=== PATIENT | male | born 2000 | race Hispanic/Latino ===

== ENCOUNTER 2021-12-02 02:21 | Inpatient (IN) | payer OTHER, SELFPAY ==
--- OUTSIDE RECORDS SUMMARY | 2021-12-02 02:25 | XMS REPORT | Continuity of Care Document ---
:2000 Author Organization [facility] t Address [address] [place] [address] Dr. Jones [address] [place] [address] Care Team Providers Name Role Phone Singer RUTLEDGE Attending Clinician Vance Doran DO Attending Clinician Vance DORAN Attending Clinician Unavailable Problems Condition Condition Condition Status Onset Resolution Last Treating Co mments Source Name Details Category Date Date Treatment Clinician Date No known No known Disease Unive rs active active ity of problems problems [facility] Allergies, Adverse Reactions, Alerts Allergy Allergy Status Severity Reaction(s) Onset Inactive Treating Comm ents Source Name Type Date Date Clinician NO KNOWN Drug Active Univers ALLERGIE Class ity of S [facility] Social History Social Habit Start Date Stop Date Quantity Comments Source Exposure to Not sure [facility] SARS-CoV-2 (event) Medica l [place] Sex Assigned At 2000 2000 [facility] 00:00:00 00:00:00 [facility] Smoking Status Start Date Stop Date Source Unknown if ever smoked [facility] Medications Ordered Filled Start Stop Current Ordering Indication Dosage Frequency Signature Comments Components Source Medication Medication Date Date Medication? Clinician (SIG) Name Name LORazepam 2019- 2020- No 1mg 1 mg, Slow U nivers (ATIVAN) 04-30 08-03 IV Push, ity of injection 1 08:45: 07:45 [place] :00 dose, [facility] Medical 04/30/20 at [place] 0345, STAT NaCl 0.9% 2020- No 1000mL at 999 Uni vers (NS) bolus 04-30 08-03 mL/hr, ity of infusion 07:45: 10:10 1,000 mL, Farooq as 1,000 mL 00 :00 IV Medical Infusion, [place] ONCE, 1 dose, [facility] 04/30/20 at 0245, CORINNA No known No Univers medications ity of [facility] No known No Univers medications ity of [facility] Vital Signs Vital Name Observation Time Observation Value Comments Source Systolic blood 2020-12-04 17:00:00 108 mm[Hg] Univer sity of pressure [facility] Diastolic blood 2020-12-04 17:00:00 76 mm[Hg] Unive rsity of pressure [facility] Heart rate 2020-12-04 17:00:00 76 /min [facility] [place] [facility] [place] Respiratory rate 2020-12-04 17:00:00 18 /min Univ ersity of [facility] Oxygen saturation in 2020-12-04 17:00:00 98 /min University of Arterial blood by [facility] Pulse oximetry Branch Body temperature 2020-12-04 14:45:00 37.28 [facility] Body weight 2020-12-04 14:45:00 54.432 kg Universi ty of [facility] Systolic blood 2020-04-30 10:00:00 120 mm[Hg] Univer sity of [facility] Diastolic blood 2020-04-30 10:00:00 72 mm[Hg] Unive rsity of [facility] Heart rate 2020-04-30 10:00:00 113 /min [facility] [place] [facility] Respiratory rate 2020-04-30 10:00:00 19 /min [facility] [place] [facility] Oxygen saturation in 2020-04-30 10:00:00 98 /min University of Arterial blood by [facility] Pulse oximetry Branch Body temperature 2020-04-30 07:41:[address] [facility] [place] Body weight 2020-04-30 07:41:00 58.968 kg Universi ty [facility] Procedures Procedure Date / Time Performed Performing Clinician Sourc e MAGNESIUM 2020-12-04 16:27:00 Uriel Nowak o f [facility] BASIC METABOLIC PANEL 2020-12-04 16:27:00 [facility] Now[facility] (NA, K, CL, CO2, Medical Branch GLUCOSE, BUN, CREATININE, CA) CBC WITHOUT DIFF 2020-12-04 16:27:00 Uriel Nowak [facility] NOTICE OF PRIVACY 2020-12-04 14:27:24 Doctor Unassigned, No Univ [facility] PRACTICES Name Medical Branch CONSENT/REFUSAL FOR 2020-12-04 14:26:55 Doctor Unassigned, No [facility] AND Name Medical Branch TREATMENT BASIC METABOLIC PANEL 2020-04-30 07:45:00 Nicole Doran [facility] (NA, K, CL, CO2, Medical Branch GLUCOSE, BUN, CREATININE, CA) CBC WITH DIFF 2020-04-30 07:45:00 Nicole Doran [facility] EKG-12 LEAD 2020-04-30 07:41:22 Nicole Doran [facility] Encounters Start End Encounter Admission Attending Care Care Encounter Source Date/Time Date/Time Type Type Clinicians Facility Department ID 2020-12-04 2020-12-04 Emergency [facility] [id number] Univers 08:47:00 11:41:00 Uriel Negron [id number] i ty [facility] [id number] [facility] [id number] [address] 2020-12-04 2020-12-04 Emergency X [facility] ERT [id number] Univers 08:25:00 [facility] 2020-04-30 2020-04-30 Emergency [facility] [id number] Univers 02:35:00 05:18:00 [id number] [id number] [facility] [id number] [address] 2020-04-30 2020-04-30 Emergency X [facility] ERT [id number] Univers 02:35:00 02:35:[address] [facility] Results Test Description Test Time Test Comments Results Result Comments Source MAGNESIUM 2020-12-04 17:19:54 Test Item Value Reference Range Interpretation Comme nts MAGNESIUM (test code = 5171140396) 1.9 mg/dL 1.7-2.4 Lab Interpretation (test code = 84471-6) Normal [facility] (NA, K, CL, CO2, GLUCOSE, BUN, CREATININE, CA)2020-12-04 17:19:53 Test Item Value Reference Range Interpretation Comments NA (test code = 140 mmol/L 135-145 7426677073) K (test code = 4.7 mmol/L 3.5-5.0 3354175311) CL (test code = 103 mmol/L 98-108 9844731366) CO2 TOTAL (test code = 29 mmol/L 23-31 1704529606) AGAP (test code = 2-16 1485969419) BUN (test code = 20 mg/dL 7-23 3185630483) GLUCOSE (test code = 95 mg/dL 70-110 1176968681) CREATININE (test code 0.79 mg/dL 0.60-1.25 = 6100915880) CALCIUM (test code = 9.3 mg/dL 8.6-10.6 3248724262) eGFR Calculation mL/min/1.73m2 (Non-) (test code = 4725022690) eGFR Calculation mL/min/1.73m2 () (test code = 0159990124) NICK (test code = NICK) Association of Glomerular Filtration Rate (GFR) and Staging of Kidney Disease* + -+ + ---+| GFR (mL/min/1.73 m2) ?| With Kidney Damage ?| ?Without Kidney Damage+ -------+ ------+ ---------+| ?>90 ?| ?Stage one ?| ? Normal ?+ --+ -+ ----+| ?60-89 ?| ?Stage two ?| ? Decreased GFR ? + -+ + ---+| ?30-59 ?| ?Stage three ?| ? Stage three ? + -+ + ---+| ?15-29 ?| ?Stage four ? | ? Stage four ?+ --+ -+ ----+| ?<15 (or dialysis) ? ?| ?Stage five ? | ? Stage five ?+ --+ -+ ----+ *Each stage assumes the associated GFR level has been in effect for at least three months. ?Stages 1 to 5, with or without kidney disease, indicate chronic kidney disease. Notes: Determination of stages one and two (with eGFR >59mL/min/1.73 m2) requires estimation of kidney damage for at least three months as defined by structural or functional abnormalities of the kidney, manifested by either:Pathological abnormalities or Markers of kidney damage (including abnormalities in the composition of the blood or urine or abnormalities in imaging tests). [facility] [id number] 16:40:29 Test Item Value Reference Range Interpretation Comments WBC (test code = 6690-2) See_Comment [A utomated message] The system [employer] generated this result transmit yordan reference range : 4.20 - 10.70 10*3/?L. The reference range was not used to interpret this result as normal/abnormal . RBC (test code = 789-8) See_Comment [Au tomated message] The system [employer] generated this result transmit yordan reference range : 4.26 - 5.52 10* 6/?L. The reference r brendon was not used to interpret this result as normal/abnormal . HGB (test code = 718-7) 16.8 g/dL 12.2-16.4 H HCT (test code = 4544-3) 48.2 % 38.4-49.3 MCH (test code = 785-6) 31.2 pg 26.1-32.7 MCV (test code = 787-2) 89.4 fL 81.7-95.6 MCHC (test code = 786-4) 34.9 g/dL 31.2-35.0 PLT (test code = 777-3) See_Comment [Au tomated message] The system [employer] generated this result transmit yordan reference range : 150 - 328 10*3/?L. The reference range was not used to interpret this result as normal/abnormal . MPV (test code = 10.3 fL 9.8-13.0 89349-7) RDW-CV (test code = 11.4 % 12.1-15.4 L 788-0) RDW-SD (test code = 36.4 fL 38.5-51.6 L 92148-2) NRBC x10^3 (test code = <0.01 See_Comment [Au tomated message] 6885801524) The system [employer] generated this result transmit yordan reference range : 10*3/?L. The reference range was not used to interpret this result as normal/abnormal . NRBC/100 WBC (test code See_Comment [Au tomated message] = 4045581148) The system [employer] generated this result transmit yordan reference range : 0.0 - 10.0 /100 WBC s. The reference r brendon was not used to interpret this result as normal/abnormal . IPF % (test code = 6265035353) Lab Interpretation (test Abnormal code = 06972-3) [facility] Metabolic Panel (NA, K, CL, CO2, GLUCOSE, BUN, CREATININE, CA)2020-04-30 08:08:00 Test Item Value Reference Range Interpretation Comments NA (test code = 141 mmol/L 135-145 1699327927) K (test code = 3.3 mmol/L 3.5-5 L 6599801648) CL (test code = 105 mmol/L 98-108 4578018483) CO2 TOTAL (test code = 25 mmol/L 23-31 2591085315) AGAP (test code = 2-16 2393585712) BUN (test code = 21 mg/dL 7-23 2220231076) GLUCOSE (test code = 155 mg/dL 70-110 H 1382220950) CREATININE (test code = 0.88 mg/dL 0.6-1.25 3093135425) CALCIUM (test code = 9.7 mg/dL 8.6-10.6 7005491148) eGFR Calculation mL/min/1.73m2 (Non-) (test code = 0049314339) eGFR Calculation mL/min/1.73m2 () (test code = 5752302547) NICK (test code = NICK) Association of Glomerular Filtration Rate (GFR) and Staging of Kidney Disease* + --+ --+ ------+| GFR (mL/min/1.73 m2) ?| With Kidney Damage ?| ?Without Kidney Damage+ --------+ --------+ +| ?>90 ?| ?Stage one ?| ? Normal ?+ ---+ ---+ -------+| ?60-89 ?| ?Stage two ?| ? Decreased GFR ? + --+ --+ ------+| ?30-59 ?| ?Stage three ?| ? Stage three ? + --+ --+ ------+| ?15-29 ?| ?Stage four ? | ? Stage four ?+ ---+ ---+ -------+| ?<15 (or dialysis) ? ?| ?Stage five ? | ? Stage five ?+ ---+ ---+ -------+ *Each stage assumes the associated GFR level has been in effect for at least three months. ?Stages 1 to 5, with or without kidney disease, indicate chronic kidney disease. Notes: Determination of stages one and two (with eGFR >59mL/min/1.73 m2) requires estimation of kidney damage for at least three months as defined by structural or functional abnormalities of the kidney, manifested by either:Pathological abnormalities or Markers of kidney damage (including abnormalities in the composition of the blood or urine or abnormalities in imaging tests). Lab Interpretation Abnormal (test code = 81769-1) [facility] with [id number] 07:58:00 Test Item Value Reference Range Interpretation Comments WBC (test code = See_Comment [Automated 1718-2) message] The sy stem which generated this result transmitted reference range : 4.20 - 10.70 10*3/?L. The reference range was not used to interpret this result as normal/abnormal . RBC (test code = See_Comment [Automated 945-8) message] The sy stem which generated this result transmitted reference range : 4.26 - 5.52 10*6/?L. The reference range was not used to interpret this result as normal/abnormal . HGB (test code = 16.1 g/dL 12.2-16.4 718-7) HCT (test code = 45.1 % 38.4-49.3 4544-3) MCV (test code = 88.4 fL 81.7-95.6 787-2) MCH (test code = 31.6 pg 26.1-32.7 785-6) MCHC (test code = 35.7 g/dL 31.2-35 H 786-4) RDW-SD (test code = 35.3 fL 38.5-51.6 L 49765-6) RDW-CV (test code = 11.0 % 12.1-15.4 L 788-0) PLT (test code = See_Comment [Automated 567-3) message] The sy stem which generated this result transmitted reference range : 150 - 328 10*3/ ?L. The reference r brendon was not used to interpret this result as normal/abnormal . MPV (test code = 10.5 fL 9.8-13 41763-7) NRBC/100 WBC (test See_Comment [Automat ed code = 7345942231) message] The system which generated this result transmitted reference range : 0.0 - 10.0 /100 WBCs. The refer ence range was not u sed to interpret th is result as normal/abnormal . NRBC x10^3 (test code <0.01 See_Comment [Auto mated = 7973066047) message] The s ystem which generated this result transmitted reference range : 10*3/?L. The reference range was not used to interpret this result as normal/abnormal . GRAN MAT (NEUT) % 56.1 % (test code = 770-8) IMM GRAN % (test code 0.30 % = 0118393600) LYMPH % (test code = 36.2 % 736-9) MONO % (test code = 5.1 % 5905-5) EOS % (test code = 2.0 % 713-8) BASO % (test code = 0.3 % 706-2) GRAN MAT x10^3(ANC) 4.87 10*3/uL 1.99-6.95 (test code = 9152413731) IMM GRAN x10^3 (test 0.03 10*3/uL 0-0.06 code = 3072357055) LYMPH x10^3 (test code 3.14 10*3/uL 1.09-3.23 = 731-0) MONO x10^3 (test code 0.44 10*3/uL 0.36-1.02 = 742-7) EOS x10^3 (test code = 0.17 10*3/uL 0.06-0.53 711-2) BASO x10^3 (test code 0.03 10*3/uL 0.01-0.09 = 704-7) Lab Interpretation Abnormal (test code = 81350-1) [facility]"
[2021-12-02] MEDS ORDERED: ALBUTEROL 2.5 MG/3 ML NEB SOL ONE (03:21)
[2021-12-02] MEDS ORDERED: IPRATROPIUM BROM 0.5MG/2.5ML ONE (03:21)
[2021-12-02 03:36] LABS: Urine Blood Negative (Negative); Urine Glucose Negative (Negative); Urine Protein Negative (Negative); Urine Specific Gravity >=1.030 (1.005-1.030)
[2021-12-02 03:46] LABS: Protime INR 1.33
[2021-12-02 03:47] LABS: Absolute Lymphocytes (CBC) 1.5 K/uL (0.7-4.9); Hematocrit 45.6 % (39.6-49.0); Lymphocytes % 18.2 % (15.3-44.8); MPV 8.1 fL (7.6-11.3); RBC Red Blood Cell Count 5.17 M/uL (4.33-5.43)
[2021-12-02 03:57] LABS: SARS-COV-2 RT PCR NEGATIVE (NEGATIVE)
[2021-12-02 03:58] LABS: ALT/SGPT 41 U/L (12-78); AST/SGOT 20 U/L (15-37); Albumin 4.4 g/dL (3.4-5.0); Alkaline Phosphatase 106 U/L (45-117); BUN Blood Urea Nitrogen 25 mg/dL (7-18); Bicarbonate 26 mmol/L (21-32); Bilirubin Direct 0.1 mg/dL (0-0.2); Bilirubin Total 0.4 mg/dL (0.2-1.0); Glucose Level 98 mg/dL (74-106); Magnesium 2.4 mg/dL (1.8-2.4); Potassium 4.1 mmol/L (3.5-5.1); Protein, Total 7.9 g/dL (6.4-8.2); Sodium Level 139 mmol/L (136-145)
[2021-12-02 04:01] LABS: Barbiturates NEGATIVE (NEGATIVE); Benzodiazepines NEGATIVE (NEGATIVE); Cocaine NEGATIVE (NEGATIVE); METHAMPHETAM NEGATIVE (NEGATIVE); Methadone NEGATIVE (NEGATIVE); Opiates NEGATIVE (NEGATIVE); Phencyclidine NEGATIVE (NEGATIVE); THC Cannibis NEGATIVE (NEGATIVE)
[2021-12-02] MEDS ORDERED: LIDOCAINE 1% MPF 30 ML VIAL ONE (04:13)
[2021-12-02 04:16] LABS: NT PRO-BNP < 5 pg/mL (<125); Troponin High Sensitivity < 3.00 pg/mL (<58.9)
[2021-12-02] MEDS ORDERED: FENTANYL CITR 100 MCG/2 ML ONE (04:26)
[2021-12-02] MEDS ORDERED: ETOMIDATE 20 MG/10 ML VIAL IV ONE (04:26)
[2021-12-02] MEDS ORDERED: WATER FOR INJ,STERILE 20 ML ONE (04:49)
--- NOTE | 2021-12-02 05:11 | ER ---
Nurse's Notes [facility] Name: Bennett Magaña Jr Age: 21 yrs Sex: Male : 2000 Arrival Date: 12/02/2021 Time: 02:24 Bed 4 Private MD: Diagnosis: Primary spontaneous pneumothorax Presentation: 12/02 02:37 Chief complaint: Patient states: Reports pain with breathing x 1 day, more to right lp1 side of chest with some nasal congestion; Hx of Asthma. Coronavirus screen: At this time, the client does not indicate any symptoms associated with coronavirus-19. Ebola Screen: No symptoms or risks identified at this time. Initial Sepsis Screen: Does the patient meet any 2 criteria? No. Patient's initial sepsis screen is negative. Does the patient have a suspected source of infection? No. Patient's initial sepsis screen is negative. Risk Assessment: Do you want to hurt yourself or someone else? Patient reports no desire to harm self or others. Onset of symptoms was December 01, 2021. 02:37 Method Of Arrival: Ambulatory lp1 02:37 Acuity: JESSICA 3 lp1 Triage Assessment: 02:39 General: Appears in no apparent distress. Behavior is calm, cooperative. Pain: lp1 Complains of pain in anterior aspect of right upper chest Aggravated by increased activity. Respiratory: Reports pain with respiration Respiratory effort is even, unlabored. Derm: Skin is pink, warm \\T\\ dry. Historical: - Allergies: 02:39 No Known Allergies; lp1 - Home Meds: 02:39 None [Active]; lp1 - PMHx: 02:39 Asthma; lp1 - PSHx: 02:39 None; lp1 - Immunization history:: Adult Immunizations up to date. - Social history:: Smoking status: Patient denies any tobacco usage or history of. Screenin:39 Abuse screen: Denies threats or abuse. Denies injuries from another. Nutritional lp1 screening: No deficits noted. Tuberculosis screening: No symptoms or risk factors identified. Fall Risk None identified. Assessment: 03:35 General: Appears uncomfortable, Behavior is calm, cooperative. Pain: Complains of pain ll3 in chest and anterior aspect of right upper chest Pain currently is 6 out of 10 on a pain scale. Quality of pain is described as sharp, Pain began 3 hours ago. Is intermittent, Alleviated by rest, Aggravated by Taking a deep breath Noted to be States it hurts to take a deep breath or cough. Neuro: Level of Consciousness is awake, alert, obeys commands, Oriented to person, place, time, situation. Cardiovascular: Rhythm is sinus rhythm. Respiratory: Reports shortness of breath pain with cough pain with respiration Airway is patent Respiratory effort is even, unlabored, Respiratory pattern is regular, symmetrical, Breath sounds are clear bilaterally. Derm: Skin is pink, warm \\T\\ dry. Musculoskeletal: Circulation, motion, and sensation intact. 03:51 Reassessment: States "That breathing treatment helped so much, I don't feel as short of ll3 breath and it doesn't hurt as much when I take a deep breath". Patient states feeling better. Patient states symptoms have improved. 05:09 Reassessment: See conscious sedation flow sheet in chart. ll3 Vital Signs: 02:37 BP 158 / 96; Pulse 96; Resp 18; Temp 98.4(O); Pulse Ox 98% on R/A; Weight 68.95 kg (R); lp1 Height 5 ft. 10 in. (177.80 cm); Pain 6/10; 03:30 BP 130 / 82; Pulse 81; Resp 20; Pulse Ox 100% on R/A; ll3 04:32 BP 120 / 101; Pulse 90; Resp 21; Pulse Ox 100% on R/A; ll3 06:12 BP 122 / 63; Pulse 88; Resp 17 S; Pulse Ox 97% on R/A; as6 02:37 Body Mass Index 21.81 (68.95 kg, 177.80 cm) lp1 ED Course: 02:24 Patient arrived in ED. es 02:31 Peter Mesa MD is Attending Physician. mh7 02:38 Triage completed. lp1 02:38 Arm band placed on. lp1 03:21 Adriana Thrasher, ROXANN is Primary Nurse. ll3 03:27 XRAY Chest (1 view) In Process Unspecified. EDMS 03:35 Patient has correct armband on for positive identification. Bed in low position. Call ll3 light in reach. Side rails up X 1. 03:35 Initial lab(s) drawn, by ED staff, sent to lab. Urine collected: clean catch specimen, ll3 clear, EKG done, by ED staff, reviewed by Adriana Thrasher RN COVID swab sent to lab. Flu and/or RSV swab sent to lab. X-ray(s) taken. Legal drug screen obtained per protocol. Initial Neb Treatment Given as ordered Patient was instructed and evaluated on procedure Patient tolerated procedure well without adverse effect. Inserted saline lock: 20 gauge in right antecubital area, using aseptic technique. Blood collected. 05:10 Colin Perez MD is Hospitalizing Provider. [facility] 05:11 Assist provider with chest tube insertion with 18 Fr. in right lateral chest wall. Tray ll3 was set up. Attached to [employer]. Chest tube inserted by Peter Mesa MD Placement verified by CXR, Dressed with Vaseline gauze, foam tape, silk tape, 4X4s, Patient tolerated well. Inserted saline lock: 18 gauge in left antecubital area, using aseptic technique. 06:06 Patient admitted, IV remains in place. as6 Administered Medications: 03:30 Drug: Albuterol 2.5 mg Route: Inhalation; ll3 03:50 Follow up: Response: No adverse reaction; Marked relief of symptoms ll3 03:30 Drug: AtroVENT (ipratropium) Aerosol 0.5 mg Route: Inhalation; ll3 03:50 Follow up: Response: No adverse reaction; Marked relief of symptoms ll3 04:46 Drug: fentaNYL (PF) 50 mcg Route: IVP; Site: left antecubital; ll3 05:45 Follow up: Response: No adverse reaction; RASS: Drowsy (-1) as6 04:50 Drug: Etomidate 20 mg Route: IVP; Site: left antecubital; ll3 05:45 Follow up: Response: No adverse reaction as6 04:52 Drug: Etomidate 10 mg Route: IVP; Site: left antecubital; ll3 05:45 Follow up: Response: No adverse reaction as6 04:57 Drug: Etomidate 10 mg Route: IVP; Site: left antecubital; ll3 05:45 Follow up: Response: No adverse reaction as6 04:58 Drug: fentaNYL (PF) 50 mcg Route: IVP; Site: left antecubital; ll3 05:46 Follow up: Response: No adverse reaction; RASS: Alert and Calm (0) as6 Outcome: 05:11 Decision to Hospitalize by Provider. mh7 05:39 Admitted to Med/surg Report called to Attempted to call back. They stated they are not tw5 yet ready for patient and will have to call back 06:06 Condition: stable as6 06:25 Patient left the ED. as6 Signatures: Dispatcher [employer] Vaishnavi Dupont Laura RN RN lp1 Peter Mesa MD MD 7 Ronda Basurto 5 Matty Limon RN RN as6 Adriana Thrasher RN RN ll3 Corrections: (The following items were deleted from the chart) 05:11 04:32 Reassessment: alexis ll3
--- NOTE | 2021-12-02 05:12 | EDPHYS ---
Physician Documentation [facility] Name: Bennett Magaña Jr Age: 21 yrs Sex: Male : 2000 Arrival Date: 12/02/2021 Time: 02:24 Bed 4 Private MD: ED Physician Peter Mesa HPI: 12/02 03:06 This 21 yrs old Male presents to ER via Ambulatory with complaints of mh7 Breathing Difficulty. 03:06 The patient has shortness of breath at rest. Onset: The symptoms/episode began/occurred mh7 yesterday. Duration: The symptoms are intermittent, with no pattern. The patient's shortness of breath is aggravated by Deep breaths, is alleviated by nothing. Associated signs and symptoms: Pertinent positives: chest pain, Pertinent negatives: non-productive cough, productive cough, diaphoresis, dizziness, fever, hemoptysis, loss of consciousness, nausea, numbness in extremities, visual changes, vomiting. Severity of symptoms: At their worst the symptoms were moderate yesterday, in the emergency department the symptoms are unchanged. Historical: - Allergies: 02:39 No Known Allergies; lp1 - Home Meds: 02:39 None [Active]; lp1 - PMHx: 02:39 Asthma; lp1 - PSHx: 02:39 None; lp1 - Immunization history:: Adult Immunizations up to date. - Social history:: Smoking status: Patient denies any tobacco usage or history of. ROS: 03:06 Constitutional: Negative for fever, chills, and weight loss, Eyes: Negative for injury, mh7 pain, redness, and discharge, ENT: Negative for injury, pain, and discharge, Neck: Negative for injury, pain, and swelling, Abdomen/GI: Negative for abdominal pain, nausea, vomiting, diarrhea, and constipation, Back: Negative for injury and pain, : Negative for injury, bleeding, discharge, and swelling, MS/Extremity: Negative for injury and deformity, Skin: Negative for injury, rash, and discoloration, Neuro: Negative for headache, weakness, numbness, tingling, and seizure, Psych: Negative for depression, anxiety, suicide ideation, homicidal ideation, and hallucinations, Allergy/Immunology: Negative for hives, rash, and allergies, Endocrine: Negative for neck swelling, polydipsia, polyuria, polyphagia, and marked weight changes, Hematologic/Lymphatic: Negative for swollen nodes, abnormal bleeding, and unusual bruising. Exam: 03:06 Constitutional: This is a well developed, well nourished patient who is awake, alert, mh7 and in no acute distress. Head/Face: Normocephalic, atraumatic. Eyes: Pupils equal round and reactive to light, extra-ocular motions intact. Lids and lashes normal. Conjunctiva and sclera are non-icteric and not injected. Cornea within normal limits. Periorbital areas with no swelling, redness, or edema. Neck: Trachea midline, no thyromegaly or masses palpated, and no cervical lymphadenopathy. Supple, full range of motion without nuchal rigidity, or vertebral point tenderness. No Meningismus. Chest/axilla: Normal chest wall appearance and motion. Nontender with no deformity. No lesions are appreciated. Cardiovascular: Regular rate and rhythm with a normal S1 and S2. No gallops, murmurs, or rubs. Normal PMI, no JVD. No pulse deficits. Respiratory: Lungs have equal breath sounds bilaterally, clear to auscultation and percussion. No rales, rhonchi or wheezes noted. No increased work of breathing, no retractions or nasal flaring. Abdomen/GI: Soft, non-tender, with normal bowel sounds. No distension or tympany. No guarding or rebound. No evidence of tenderness throughout. Back: No spinal tenderness. No costovertebral tenderness. Full range of motion. Skin: Warm, dry with normal turgor. Normal color with no rashes, no lesions, and no evidence of cellulitis. MS/ Extremity: Pulses equal, no cyanosis. Neurovascular intact. Full, normal range of motion. Neuro: Awake and alert, GCS 15, oriented to person, place, time, and situation. Cranial nerves II-XII grossly intact. Motor strength 5/5 in all extremities. Sensory grossly intact. Cerebellar exam normal. Normal gait. Psych: Awake, alert, with orientation to person, place and time. Behavior, mood, and affect are within normal limits. 03:30 ECG was reviewed by the Attending Physician. [facility] Vital Signs: 02:37 BP 158 / 96; Pulse 96; Resp 18; Temp 98.4(O); Pulse Ox 98% on R/A; Weight 68.95 kg (R); lp1 Height 5 ft. 10 in. (177.80 cm); Pain 6/10; 03:30 BP 130 / 82; Pulse 81; Resp 20; Pulse Ox 100% on R/A; ll3 04:32 BP 120 / 101; Pulse 90; Resp 21; Pulse Ox 100% on R/A; ll3 06:12 BP 122 / 63; Pulse 88; Resp 17 S; Pulse Ox 97% on R/A; as6 02:37 Body Mass Index 21.81 (68.95 kg, 177.80 cm) lp1 Procedures: 05:26 Chest tube insertion: the site was prepped using Betadine, in sterile fashion, Tube mh7 size: a 18 khmer chest tube was inserted, introduced in right lateral chest wall, to pleur-e-vac, dressed with vaseline gauze, foam tape, 4x4s, the patient tolerated the procedure well. Moderate sedation: Pre-procedure assessment: the patient has been NPO 8 hour(s) prior to arrival, ASA physical classification: I - healthy, no underlying organic disease, Airway assessment: able to hyperextend neck, able to maintain airway, can open mouth without difficulty, Mallampati classification of tongue size: I - faucial pillars, soft palate, and uvula can be fully visualized, Monitoring during procedure: monitor worker, continuous pulse oximetry, nurse at bedside at all times, Medications employed: Etomidate, 40 mg(s), Fentanyl, 100 mcg(s), Post-procedure assessment: the patient is moderately sedated, Respiratory status: even and unlabored, a reversal agent was not used. MDM: 05:09 Differential diagnosis: Anemia Anxiety Reaction asthma, Bronchitis pneumonia, mh7 Pneumothorax Psychogenic reactive airway disease. Data reviewed: vital signs, nurses notes, lab test result(s), cardiac enzymes, CBC, electrolytes, EKG, radiologic studies, plain films. Data interpreted: Pulse oximetry: on 2L(s) per nasal canula, is 100 %. Interpretation: acceptable. Counseling: I had a detailed discussion with the patient and/or guardian regarding: the historical points, exam findings, and any diagnostic results supporting the discharge/admit diagnosis, lab results, radiology results, the need for further work-up and treatment in the hospital. Response to treatment: the patient's symptoms have markedly improved after treatment. 05:11 Patient medically screened. [facility] 12/02 02:56 Order name: Basic Metabolic Panel; Complete Time: 04:22 [facility] 12/02 02:56 Order name: CBC with Diff; Complete Time: 04:02 [facility] 12/02 02:56 Order name: LFT's; Complete Time: 04:22 [facility] 12/02 02:56 Order name: Magnesium; Complete Time: 04:22 [facility] 12/02 02:56 Order name: NT PRO-BNP; Complete Time: 04:22 [facility] 12/02 02:56 Order name: PT-INR; Complete Time: 04:02 [facility] 12/02 02:56 Order name: Troponin HS; Complete Time: 04:22 [facility] 12/02 02:56 Order name: XRAY Chest (1 view) [facility] 12/02 02:56 Order name: UDS; Complete Time: 04:08 [facility] 12/02 02:56 Order name: COVID-19/FLU A+B (Document "Date of Onset" if Symptomatic); Complete Time: [facility] 04:02 12/02 03:35 Order name: Urine Dipstick-Ancillary; Complete Time: 04:02 [facility] 12/02 05:06 Order name: Chest Single View XRAY la1 12/02 02:56 Order name: EKG; Complete Time: 02:57 [facility] 12/02 02:56 Order name: Cardiac monitoring; Complete Time: 03:21 [facility] 12/02 02:56 Order name: EKG - Nurse/Tech; Complete Time: 03:21 [facility] 12/02 02:56 Order name: IV Saline Lock; Complete Time: 03:21 [facility] 12/02 02:56 Order name: Labs collected and sent; Complete Time: 03:21 [facility] 12/02 02:56 Order name: O2 Per Protocol; Complete Time: 03:21 [facility] 12/02 02:56 Order name: O2 Sat Monitoring; Complete Time: 03:21 [facility] EC:30 Rate is 83 beats/min. Rhythm is regular, Normal Sinus Rhythm with No ectopy. QRS Harmony 7 is Normal. IN interval is normal. QRS interval is normal. QT interval is normal. No Q waves. T waves are Normal. No ST changes noted. Clinical impression: Normal ECG. Administered Medications: 03:30 Drug: Albuterol 2.5 mg Route: Inhalation; ll3 03:50 Follow up: Response: No adverse reaction; Marked relief of symptoms ll3 03:30 Drug: AtroVENT (ipratropium) Aerosol 0.5 mg Route: Inhalation; ll3 03:50 Follow up: Response: No adverse reaction; Marked relief of symptoms ll3 04:46 Drug: fentaNYL (PF) 50 mcg Route: IVP; Site: left antecubital; ll3 05:45 Follow up: Response: No adverse reaction; RASS: Drowsy (-1) as6 04:50 Drug: Etomidate 20 mg Route: IVP; Site: left antecubital; ll3 05:45 Follow up: Response: No adverse reaction as6 04:52 Drug: Etomidate 10 mg Route: IVP; Site: left antecubital; ll3 05:45 Follow up: Response: No adverse reaction as6 04:57 Drug: Etomidate 10 mg Route: IVP; Site: left antecubital; ll3 05:45 Follow up: Response: No adverse reaction as6 04:58 Drug: fentaNYL (PF) 50 mcg Route: IVP; Site: left antecubital; ll3 05:46 Follow up: Response: No adverse reaction; RASS: Alert and Calm (0) as6 Disposition Summary: 12/02/21 05:11 Hospitalization Ordered Hospitalization Status: Inpatient Admission [facility] Provider: Colin Perez [facility] Location: Telemetry/MedSurg (Inpatient) [facility] Condition: Stable [facility] Problem: new [facility] Symptoms: have improved [facility] Bed/Room Type: Standard [facility] Room Assignment: [facility](12/02/21 05:18) eb1 Diagnosis - Primary spontaneous pneumothorax [facility] Forms: - Medication Reconciliation Form [facility] - SBAR form [facility] Signatures: Dispatcher [employer] EDYesy Nunez RN RN lp1 Adrián Jack FNP-Ilda RAMEYP-Shasta Ibanez RN RN eb1 Peter Mesa MD MD 7 Adriana Thrasher RN RN ll3 Matty Limon RN as6 Corrections: (The following items were deleted from the chart) 05:18 05:11 7 eb1
--- NOTE | 2021-12-02 05:41 | P.HP ---
Certification for Inpatient Patient admitted to: Inpatient With expected LOS: >2 Midnights Patient will require the following post-hospital care: None Practitioner: I am a practitioner with admitting privileges, knowledge of patient current condition, hospital course, and medical plan of care. Services: Services provided to patient in accordance with Admission requirements found in Title 42 Section 412.3 of the Code of Federal Regulations Patient History Date of Service: 12/02/21 Reason for admission: Primary spontaneous pneumothorax History of Present Illness: 21-year-old male with history of asthma presents emergency department for shortness of breath, right-sided chest pain. Patient was evaluated in the emergency department his labs were remarkable chest x-ray demonstrated approximately 50% right-sided pneumothorax. Given large size of pneumothorax ED provider placed 18 German Cook catheter chest tube to the right chest. Patient tolerated procedure well significant resolution and pneumothorax noted on chest x-ray. Patient without any oxygen requirement at this time chest tube placement verified by chest x-ray. Hooked up to suction. Pulmonology to be consulted. - Past Medical/Surgical History -: Asthma -: Left arm surgery Psychosocial/ Personal History: Lives at home with family - Social History Smoking Status: Former smoker Alcohol use: Yes CD- Drugs: No Caffeine use: Yes Place of Residence: Home Review of Systems 10-point ROS is otherwise unremarkable Respiratory: Shortness of Breath, Pleuritic Pain, As per HPI Physical Examination - Physical Exam General: Alert, In no apparent distress, Oriented x3 HEENT: Atraumatic, PERRLA, Mucous membr. moist/pink, EOMI, Sclerae nonicteric Neck: Supple, 2+ carotid pulse no bruit, No LAD, Without JVD or thyroid abnormality Respiratory: Clear to auscultation bilaterally, Normal air movement Cardiovascular: Regular rate/rhythm, Normal S1 S2 Gastrointestinal: Normal bowel sounds, No tenderness Musculoskeletal: No tenderness Integumentary: No rashes Neurological: Normal speech, Normal strength at 5/5 x4 extr, Normal tone, Normal affect - Studies Laboratory Data (last 24 hrs) 12/02/21 03:10: PT 15.3 H, INR 1.33 12/02/21 03:10: WBC 8.20, Hgb 15.7, Hct 45.6, Plt Count 230 12/02/21 03:10: Sodium 139, Potassium 4.1, BUN 25 H, Creatinine 0.91, Glucose 98, Magnesium 2.4, Total Bilirubin 0.4, AST 20, ALT 41, Alkaline Phosphatase 106 Assessment and Plan - Plan Assessment: Primary spontaneous pneumothorax Asthma History of vaping/tobacco abuse Plan: Primary spontaneous pneumothorax: 18 German Cook chest tube placed by ED ph ysician. Chest x-ray confirms placement, significant resolution apparent on chest x-ray. Pulmonology consulted will admit to floor chest tube to suction at this time. Patient denies any trauma does have history of asthma but is not on any medications at this time and has not required any. Does also admit to vaping in the past but has quit for about a year now. Daily chest x-ray. Asthma: No current exacerbation, has not required any inhalers or nebulizer treatments for many years. History of vaping/tobacco abuse: No longer uses tobacco products or vapes, reports its been about a year since he has. DVT PPX: Lovenox Code status: Full Discharge Plan: Home Plan to discharge in: 48 Hours - Advance Directives Does patient have a Living Will: No Does patient have a Durable POA for Healthcare: No - Code Status/Comfort Care Code Status Assessed: Yes (Full) Critical Care: No Time Spent Managing Pts Care (In Minutes): 55
[2021-12-02] MEDS ORDERED: HYDROCODONE/APAP 5/325 MG TAB PO PRN (05:50)
[2021-12-02] MEDS ORDERED: ONDANSETRON 4 MG/2 ML VIAL ONE (05:58)
[2021-12-02] MEDS ORDERED: MORPHINE 4 MG/ML SYR ONE (05:58)
[2021-12-02] MEDS: MORPHINE 4 MG/ML SYR IV PRN ×2 (05:59→12:49)
[2021-12-02] MEDS: ONDANSETRON 4 MG/2 ML VIAL IV PRN ×2 (05:59→15:00)
[2021-12-02] MEDS ORDERED: INFLUENZA VACCINE (for 6+ mo) 0.5 ML DOSE IMVAC ONE (08:00)
[2021-12-02] MEDS ORDERED: ENOXAPARIN 40 MG/0.4 ML SQ SCH (09:00)
[2021-12-02] MEDS ORDERED: HYDROCODONE/APAP 5/325 MG TAB PO SCH (09:00)
--- NOTE | 2021-12-02 12:28 | RAD REPORT ---
EXAM DESCRIPTION: RAD - Chest Single View - 12/02/2021 12:19 pm CLINICAL HISTORY: chest tube COMPARISON: December 02 TECHNIQUE: AP portable chest image was obtained 12/02/2021 12:19 pm . FINDINGS: Right-sided chest tube tip remains in the medial right apex. No change in positioning. Sma ll amount of air remains in the subcutaneous tissues lateral to the right chest. There may be a trace amount of pneumothorax in the right apex. Pneumothorax is otherwise not identifi ed. An anterior pneumothorax can be occult on a portable examination. No new lung parenchymal process. Cardiomediastinal silhouette is stable. Trachea is midline. No pleur al fluid component seen. Delete select IMPRESSION: No change in positioning of the chest tube. No definitive pneumothorax seen. Anterior pneumothorax can be occult on a portable examination.
--- NOTE | 2021-12-02 12:30 | P.CNS ---
Date of Consult: 12/02/21 Reason for Consult: Right-sided pneumothorax Chief Complaint: Primary spontaneous pneumothorax History of Present Illness: Patient is 21 years of age admitted with right-sided primary spontaneous pneumothorax chest tube was inserted in the emergency room he is doing well this is his first episode no obvious precipitating factors has been no air leak Allergies No Known Allergies Allergy (Unverified 12/02/21 05:50) Home Medications: NK [No Home Meds] 12/02/21 - Past Medical/Surgical History -: Asthma -: Left arm surgery Psychosocial/ Personal History: Lives at home with family - Social History Alcohol use: Yes CD- Drugs: No Caffeine use: Yes Place of Residence: Home Review of Systems 10-point ROS is otherwise unremarkable Physical Examination Temp Pulse Resp BP Pulse Ox 97.4 F 98 H 18 116/66 97 12/02/21 08:00 12/02/21 08:00 12/02/21 08:17 12/02/21 08:00 12/02/21 08:17 General: Alert, In no apparent distress, Oriented x3 Respiratory: Clear to auscultation bilaterally, Diminished Cardiovascular: No edema, Normal S1 S2 Laboratory Data (last 24 hrs) 12/02/21 03:10: PT 15.3 H, INR 1.33 12/02/21 03:10: WBC 8.20, Hgb 15.7, Hct 45.6, Plt Count 230 12/02/21 03:10: Sodium 139, Potassium 4.1, BUN 25 H, Creatinine 0.91, Glucose 98, Magnesium 2.4, Total Bilirubin 0.4, AST 20, ALT 41, Alkaline Phosphatase 106 - Problems (1) Primary spontaneous pneumothorax Current Visit: Yes Status: Acute Plan: Patient is 21 years of age admitted with apparent primary spontaneous pneumothorax he is doing much better chest is fully expanded he does have a chest tube there is no air leak chest tube was clamped for 4 hours repeat chest x-ray does not show any evidence of pneumothorax and to remove the chest tube with another x-ray in 4 hours ambulate patient is stable plan for discharge and is aware that no definitive treatment is recommended for primary spontaneous pneumothorax the risk of recurrence to avoid diving any high pressure related activity definitive procedure example VATS with pleurodesis would only be considered if his recurrent Addendum- Patients chest tube was clamped for 4 hours, No penumo confirmed by Radiology, Chest tube was removed. CXRY showed a R apical pneumono.PT kept for observation
--- NOTE | 2021-12-02 12:47 | RAD REPORT ---
EXAM DESCRIPTION: RAD - Chest Single View - 12/02/2021 5:21 am CLINICAL HISTORY: The patient is 21 years old and is Male; chest tube placement TECHNIQUE: Single view of the chest. COMPARISON: December 02, 2021. FINDINGS: Lungs: Unremarkable. No consolidation. Pleural space: No definite residual pneumothorax. Heart: Unremarkable. No cardiomegaly. Mediastinum: Unremarkable. Bones/joints: The bones and joints are unchanged as visualized. Soft tissues: Soft tissue gas right chest wall. Tubes, lines and devices: Interval right chest tube placement with the tip at the apex. Upper abdomen: No free air in the visualized upper abdomen. IMPRESSION: 1. Interval right chest tube placement with the tip at the apex. 2. No definite residual pneumothorax. 3. Soft tissue gas right chest wall. Electronically signed by: Laura Chadwick MD 12/02/2021 5:34 AM SERVICE SHOP FOREMAN Due to temporary technical issues with the PACS/Fluency reporting system, reports are being signed by the in house radiologist without review as a courtesy to ensure prompt reporting. The interpreting r adiologist is fully responsible for the content of the report.
--- NOTE | 2021-12-02 12:49 | RAD REPORT ---
EXAM DESCRIPTION: RAD - Chest Single View - 12/02/2021 3:27 am CLINICAL HISTORY: 21 years Male, SOB COMPARISON: None. TECHNIQUE: Single portable x-ray view of the chest performed on 12/02/2021 at 3:21 AM FINDINGS: There is a large right pneumothorax. There is no mediastinal shift. The left lung is well- expanded and clear. The cardiac silhouette is normal in size and configuration. The mediastinal contours are normal. No acute osseous abnormality is identified. No acute soft tissue abnormalities are seen. Lines and tubes: There are overlying comptometer operator leads. Free air: None IMPRESSION: 1. Large right pneumothorax without mediastinal shift. 2. The left lung is well-expanded and clear. These critical findings were discussed with Dr. Peter Mesa on 12/02/2021 at 3:54 AM central time. Electronically signed by: Emmy Kennedy DO 12/02/2021 3:54 AM HALVER MACHINE OPERATOR Due to temporary technical issues with the PACS/Fluency reporting system, reports are being signed by the in house radiologist without review as a courtesy to ensure prompt reporting. The interpreting r adiologist is fully responsible for the content of the report.
[2021-12-02] MEDS ORDERED: MORPHINE 2 MG/ML SYR IV PRN (12:56)
[2021-12-02] MEDS: HYDROCODONE/APAP 5/325 MG TAB PO PRN (15:00)
--- NOTE | 2021-12-02 15:19 | RAD REPORT ---
EXAM DESCRIPTION: RAD - Chest Single View - 12/02/2021 3:10 pm CLINICAL HISTORY: sob/pain Chest pain. COMPARISON: Chest Single View dated 12/02/2021; Chest Single View dated 12/02/2021; Chest Single View da yordan 12/02/2021 FINDINGS: Portable technique limits examination quality. The right chest tube has been removed. There is right-sided apical pneumothorax seen with volume raquel mated at 20-30%. The heart is normal in size. IMPRESSION: Removal of right chest tube is noted with reoccurrence of apical right pneumothorax as d escribed.
--- NOTE | 2021-12-02 18:03 | RAD REPORT ---
EXAM DESCRIPTION: RAD - Chest Single View - 12/02/2021 5:18 pm CLINICAL HISTORY: FOLLOW UP CHEST TUBE REMOVAL Chest pain. COMPARISON: Chest Single View dated 12/02/2021; Chest Single View dated 12/02/2021; Chest Single View da yordan 12/02/2021; Chest Single View dated 12/02/2021 FINDINGS: Portable technique limits examination quality. Right apical pneumothorax is present with estimated volume of 25% of total lung volume. The left lung is grossly clear. The heart is normal in size. Dr. Medina notified.
[2021-12-02 18:04] VITALS: BMI 21.8
[2021-12-03 04:37] LABS: Absolute Lymphocytes (CBC) 1.9 K/uL (0.7-4.9); Hematocrit 45.6 % (39.6-49.0); MPV 7.9 fL (7.6-11.3); RBC Red Blood Cell Count 5.14 M/uL (4.33-5.43)
[2021-12-03 05:04] LABS: ALT/SGPT 33 U/L (12-78); AST/SGOT 16 U/L (15-37); Albumin 4.2 g/dL (3.4-5.0); Alkaline Phosphatase 100 U/L (45-117); BUN Blood Urea Nitrogen 15 mg/dL (7-18); Bicarbonate 29 mmol/L (21-32); Bilirubin Total 0.7 mg/dL (0.2-1.0); Glucose Level 95 mg/dL (74-106); Potassium 4.2 mmol/L (3.5-5.1); Protein, Total 7.7 g/dL (6.4-8.2); Sodium Level 139 mmol/L (136-145)
--- NOTE | 2021-12-03 08:14 | RAD REPORT ---
EXAM DESCRIPTION: RAD - Chest Single View - 12/02/2021 10:10 pm CLINICAL HISTORY: Pneumothorax Chest pain. COMPARISON: Chest Single View dated 12/02/2021; Chest Single View dated 12/02/2021; Chest Single View da yordan 12/02/2021; Chest Single View dated 12/02/2021 FINDINGS: Portable technique limits examination quality. Right apical pneumothorax is again seen. This appears fractionally larger than on earlier study same date. The heart is normal in size. No displaced fractures.
--- NOTE | 2021-12-03 08:17 | RAD REPORT ---
EXAM DESCRIPTION: RAD - Chest Single View - 12/03/2021 6:29 am CLINICAL HISTORY: eval pneumothorax Chest pain. COMPARISON: Chest Single View dated 12/02/2021; Chest Single View dated 12/02/2021; Chest Single View da yordan 12/02/2021; Chest Single View dated 12/02/2021 FINDINGS: Portable technique limits examination quality. Right apical pneumothorax has moderately enlarged since examination from yesterday. Pneumothorax now was estimated at 60%. Left lung is grossly clear. The heart is normal in size.Findings were discussed with Dr. Medina on 12/03/2021 8:12 a.m. by telephone.
--- NOTE | 2021-12-03 11:30 | P.OP ---
Preoperative diagnosis: RIGHT recurrent pneumothorax Postoperative diagnosis: RIGHT recurrent pneumothorax Primary procedure: Placement of 16Fr THAL RIGHT Thoracostomy tube Anesthesia: Local 1% lidocaine Estimated blood loss: <2cc Specimen: none Findings: tube tidaling well Complications: None Drain(s): Other (16Fr Thal Chest tube) Transferred to: Recovery Room Condition: Good
[2021-12-03] MEDS ORDERED: MORPHINE 2 MG/ML SYR IV ONE (11:32)
[2021-12-03] MEDS: HYDROCODONE/APAP 5/325 MG TAB PO PRN ×2 (11:58→17:28)
--- NOTE | 2021-12-03 12:26 | RAD REPORT ---
EXAM DESCRIPTION: RAD - Chest Single View - 12/03/2021 12:14 pm CLINICAL HISTORY: new chest tube Chest pain. COMPARISON: Chest Single View dated 12/03/2021; Chest Single View dated 12/02/2021; Chest Single View da yordan 12/02/2021; Chest Single View dated 12/02/2021 FINDINGS: Portable technique limits examination quality. Right-sided chest tube has been placed directed inferomedially. Small residual right apical pneumotho rax is present currently estimated at 5-10% of lung volume. The lungs are clear of acute infiltrate.T he heart is normal in size.
--- NOTE | 2021-12-03 14:00 | OP ---
Date of Procedure: 12/03/2021 Surgeon: Robert Turcios MD, Preoperative Diagnosis: Right recurrent pneumothorax. Postoperative Diagnosis: Right recurrent pneumothorax. Procedure Performed: Placement of a 16-slovak Thal right thoracostomy tube. Anesthesia: Local 1% lidocaine utilized. Estimated Blood Loss: Less than . Specimen: None. Findings: Tube was tidaling well on Pneumevac system. Complications: None. Drain: A 16-Tai[place]ese Thal chest tube. Disposition: The patient remained in the room in good condition throughout the procedure. Procedure In Detail: After informed consent was obtained, the patient was prepped and draped in the usual sterile fashion after adequate anesthesia achieved. Along the anterior axillary line, I palpat ed an area of posterolateral from the previous insertion site approximately the fifth and sixth inter costal space 1% lidocaine after prepping and draping appropriately and I cannulated the th oracic cavity and bubbles were noted to be emanating from the syringe at this point. I placed a guid ewire and I removed the needle at this point and made a phyllis incision overlying the insertion site an d performed sequential dilatation using Seldinger technique aiming posterosuperiorly. Ultimately, a chest tube which was a 16-[place]ai[place]ese Thal chest was placed using Seldinger technique over the wire withou t evidence of complication. There was no blood appreciated from the procedure. The Pneumevac system was attached and was tidaling quite well with respirations and significant bubbling was occurring th rough the system. The Pneumevac was placed on suction. A suture was then used to secure the chest t ube to the chest wall, which was a 2-0 nylon suture and a sterile dressing placed over top. The angela ent tolerated the procedure well without evidence of complication and remained in the room throughout the procedure in good condition. All counts were correct at the end of the case. TK/MODL Voice ID: [id number] Report ID: [id number]
--- NOTE | 2021-12-03 14:50 | CON ---
Date of Consultation: 12/03/2021 Brief History Of Present Illness: The patient is a 21-year-old male, admitted with right-sided prima ry spontaneous pneumothorax on 12/02/2021. He had a small Cook dart type chest tube placed in the an terior axillary line and was removed approximately 24 hours after placement and he had recurrence of his significant pneumothorax at approximately 40% to 50% pneumothorax seen on today's chest x-ray. A s such, I was consulted for replacement of a larger bore chest tube on the right side. Past Medical History: Asthma. Past Surgical History: Left arm surgery. Allergies: NO ALLERGIES. Medications: No home medications. Social History: He lives at home with family. He drinks alcohol recreationally. Denies recreationa l drug use. Review of Systems: Ten-point review of systems other than HPI, he admits to shortness of breath, particularly with deep inspirations. Laboratory Data: He had a chest x-ray performed on 12/03, which I personally reviewed and found that he has approximately a 50% to 60% pneumothorax on the right. Assessment And Plan: This is a 21-year-old male, who comes in with recurrent right pneumothorax desp ite removal of chest tube. I have explained risks, benefits, and alternatives of replacement of a ri ght thoracostomy tube including, but not limited to bleeding, infection, damage to surrounding tissue s, need for further operation and procedures. The patient agrees to proceed as indicated. Thank you for this interesting consult. KONRAD/WOLF Voice ID: [id number] Report ID: [id number]
[2021-12-03] MEDS ORDERED: MORPHINE 2 MG/ML SYR IV PRN (14:58)
--- NOTE | 2021-12-03 17:03 | P.PN ---
Subjective Date of Service: 12/03/21 Chief Complaint: Primary spontaneous pneumothorax Pt penumothorax worsened overnight. Symptomatic with chest pain CT inserted again Review of Systems Cardiovascular: Chest Pain Physical Examination - Vital Signs Temperature: 99.1 F Blood Pressure: 149/75 Pulse: 94 Respirations: 18 Pulse Ox (%): 100 - Physical Exam General: Alert, In no apparent distress, Oriented x3 Respiratory: Clear to auscultation bilaterally, Diminished Assessment And Plan - Current Problems (Diagnosis) (1) Primary spontaneous pneumothorax Current Visit: Yes Status: Acute Plan: Ctube resinserted small air leak . Lung expanded/ CW with suction/ for now possible iodinepleurodesis/ Doing better / CT of chest
--- NOTE | 2021-12-03 18:00 | RAD REPORT ---
EXAM DESCRIPTION: CT - Thorax Wo Con - 12/03/2021 5:41 pm CLINICAL HISTORY: Pneumothorax COMPARISON: December 03, 2021 x-ray TECHNIQUE: Computed axial tomography of the chest was obtained. Contrast was not requested. All CT scans are performed using dose optimization technique as appropriate and may include automated exposure control or mA/KV adjustment according to patient size. FINDINGS: The evaluation of mediastinum, carolee and vessels is limited secondary to lack of IV contras t administration. Right chest tube has its tip within the medial lower anterior right pleural space. . Small right pneumothorax approximately 5% Small right lower lobe atelectasis A pleural effusion is not present. No pericardial effusion IMPRESSION: Small right pneumothorax approximately 5%
[2021-12-03] MEDS: MORPHINE 4 MG/ML SYR IV PRN (19:20)
[2021-12-04] MEDS: MORPHINE 4 MG/ML SYR IV PRN ×4 (03:18→22:29)
--- NOTE | 2021-12-04 07:57 | RAD REPORT ---
EXAM DESCRIPTION[facility] 5:35 am CLINICAL HISTORY: Pneumothorax COMPARISON: December 03, 2021 FINDINGS: No change in a small right pneumothorax. Right chest tube in place. Minimal right basilar atelectasis Heart is normal size IMPRESSION: No change in small right pneumothorax
[2021-12-04] MEDS ORDERED: NS 0.9% IJ ONE ×2 (08:00)
[2021-12-04] MEDS ORDERED: LIDOCAINE 2% IJ ONE ×2 (08:00)
[2021-12-04] MEDS ORDERED: POVIDONE-IODINE 10 ML, NS 0.9% VIAL 40 ML TOP ONE ×2 (08:00)
--- NOTE | 2021-12-04 08:15 | P.PN ---
Subjective Date of Service: 12/04/21 Chief Complaint: Primary spontaneous pneumothorax Patient is doing well no new complaints chest appears to be expanded still have significant amount of chest discomfort no air leak demonstrated this morning Review of Systems Cardiovascular: Chest Pain Physical Examination - Vital Signs Temperature: 99.5 F Blood Pressure: 125/71 Pulse: 75 Respirations: 15 Pulse Ox (%): 98 - Physical Exam General: Alert, In no apparent distress, Oriented x3 Respiratory: Clear to auscultation bilaterally, Diminished Cardiovascular: No edema, Regular rate/rhythm Assessment And Plan - Current Problems (Diagnosis) (1) Primary spontaneous pneumothorax Current Visit: Yes Status: Acute Plan: Patient is doing better has a very small apical pneumothorax confirmed by CT scan plan to do an iodine pleurodesis today I have clamped his chest tube for 4 hours inform patient
[2021-12-04] MEDS: HYDROCODONE/APAP 5/325 MG TAB PO PRN (08:49)
--- NOTE | 2021-12-04 12:01 | RAD REPORT ---
EXAM DESCRIPTION: ABDOULChest Single View12/04/2021 11:34 am CLINICAL HISTORY: Pneumothorax COMPARISON: December 04, 2021 FINDINGS: A right chest tube unchanged. Right pneumothorax has increased in size and is moderate to large. No other change IMPRESSION: Moderate to large right pneumothorax. Patient's nurse Yulissa notified
--- NOTE | 2021-12-04 14:02 | RAD REPORT ---
EXAM DESCRIPTION: RAD - Chest Single View - 12/04/2021 1:49 pm CLINICAL HISTORY: pleural effusion COMPARISON: Portable December 04 TECHNIQUE: AP portable chest image was obtained 12/04/2021 1:49 pm using inspiration and expiration. . FINDINGS: Chest tube is present in the right base. Tip of the tube is in the midline lower chest. Sm all right apical pneumothorax is present decreased in size from the examination earlier in the day. T he pneumothorax has increased slightly during the expiration image. No measurable pleural fluid colle ction. No acute lung parenchymal process seen. Heart and vasculature are normal. No acute bony abnormality seen. No acute aortic findings suspected. IMPRESSION: Small right apical pneumothorax is present. Pneumothorax is smaller than seen on the exa m earlier in the day. No change in positioning of the right lung base chest tube.
--- NOTE | 2021-12-04 16:32 | RAD REPORT ---
EXAM DESCRIPTION: RAD - Chest Single View - 12/04/2021 4:23 pm CLINICAL HISTORY: pneumothorax COMPARISON: Portable studies from December 04 TECHNIQUE: AP portable chest image was obtained 12/04/2021 4:23 pm . FINDINGS: Minimal right apical pneumothorax remains. This is similar to the inspiration image perfor med at 1324 hours. No change in positioning of the chest tube. No new pleural or parenchymal process. Heart and vasculature are normal. IMPRESSION: Small right apical pneumothorax has not change from the inspiration chest film obtained at 1324 hours.
[2021-12-05] MEDS: MORPHINE 4 MG/ML SYR IV PRN ×2 (08:10→18:32)
--- NOTE | 2021-12-05 10:36 | P.PN ---
Subjective Date of Service: 12/04/21 Chief Complaint: Primary spontaneous pneumothorax Subjective: Improving (didnt tolerate water seal due to persistent air leak) Physical Examination - Vital Signs Temperature: 98.2 F Blood Pressure: 121/72 Pulse: 84 Respirations: 20 Pulse Ox (%): 97 - Physical Exam General: Alert, In no apparent distress, Cooperative Respiratory: Normal air movement, Other (RIGHT thoracostomy tube in place, + persistent air leak ) Assessment And Plan - Plan 21 year old man with recurrent RIGHT pneumothorax - did not tolerate removal of initial chest tube - chest tube replaced - placed on water seal and pneumothorax rapidly recurred - placed back on suction, pneumothorax improved but air leak persists - continue daily chest x rays - recommend thoracic surgeon consultation - can consider pleurodesis if unable to transfer for higher level of care with thoracic surgeon
--- NOTE | 2021-12-05 10:37 | P.PN ---
Subjective Date of Service: 12/05/21 Chief Complaint: Primary spontaneous pneumothorax Subjective: Improving (fells well, no shortness of breath,) Physical Examination - Vital Signs Temperature: 98.2 F Blood Pressure: 121/72 Pulse: 84 Respirations: 20 Pulse Ox (%): 97 - Physical Exam General: Alert, In no apparent distress, Cooperative Respiratory: Normal air movement, Other (RIGHT chest tube in place, + persistent air leak on suction) Assessment And Plan - Plan 21 year old man with recurrent RIGHT pneumothorax - did not tolerate removal of initial chest tube - chest tube replaced - placed on water seal and pneumothorax rapidly recurred - placed back on suction, pneumothorax improved but air leak persists - continue daily chest x rays - recommend thoracic surgeon consultation - can consider pleurodesis if unable to transfer for higher level of care with thoracic surgeon
[2021-12-05] MEDS: HYDROCODONE/APAP 5/325 MG TAB PO PRN (11:48)
--- NOTE | 2021-12-05 11:50 | P.PN ---
Date of Service: 12/03/21 Subjective: had to replace CT; continue to leave in place Physical Examination -Vitals reviewed - Physical Exam General: Alert, In no apparent distress, Oriented x3 Respiratory: diminished on the left Cardiovascular: Regular rate/rhythm, Normal S1 S2 Gastrointestinal: Normal bowel sounds, No tenderness Neurological: Normal speech, Normal strength at 5/5 x4 extr, Normal tone, Normal affect Assessment and Plan Assessment: Primary spontaneous pneumothorax Asthma History of vaping/tobacco abuse Plan: -resolution apparent on chest x-ray -Pulmonology consult appreciated -Repeat CXR in AM -GI/DVT prophylaxis - Advance Directives Does patient have a Living Will: No Does patient have a Durable POA for Healthcare: No - Code Status/Comfort Care Code Status Assessed: Yes (Full) Critical Care: No Time Spent Managing Pts Care (In Minutes): 55
--- NOTE | 2021-12-05 11:51 | P.PN ---
Date of Service: 12/04/21 Subjective: Continue with repeat CXR; may remove in the am Physical Examination -Vitals reviewed - Physical Exam General: Alert, In no apparent distress, Oriented x3 Respiratory: diminished on the left Cardiovascular: Regular rate/rhythm, Normal S1 S2 Gastrointestinal: Normal bowel sounds, No tenderness Neurological: Normal speech, Normal strength at 5/5 x4 extr, Normal tone, Normal affect Assessment and Plan Assessment: Primary spontaneous pneumothorax Asthma History of vaping/tobacco abuse Plan: -resolution apparent on chest x-ray -Pulmonology consult appreciated -Repeat CXR in AM -GI/DVT prophylaxis - Advance Directives Does patient have a Living Will: No Does patient have a Durable POA for Healthcare: No - Code Status/Comfort Care Code Status Assessed: Yes (Full) Critical Care: No Time Spent Managing Pts Care (In Minutes): 55
--- NOTE | 2021-12-05 11:54 | P.PN ---
Date of Service: 12/05/21 Subjective: Patient doing well with no new changes. Spoke with surgery and recommending transfer to higher level of care Physical Examination -Vitals reviewed - Physical Exam General: Alert, In no apparent distress, Oriented x3 Respiratory: diminished on the left; CT in place Cardiovascular: Regular rate/rhythm, Normal S1 S2 Gastrointestinal: Normal bowel sounds, No tenderness Neurological: Normal speech, Normal strength at 5/5 x4 extr, Normal tone, Normal affect Assessment and Plan Assessment: Primary spontaneous pneumothorax s/p CT Asthma History of vaping/tobacco abuse Plan: -resolution apparent on chest x-ray -Pulmonology consult appreciated -Repeat CXR in AM -GI/DVT prophylaxis - Advance Directives Does patient have a Living Will: No Does patient have a Durable POA for Healthcare: No - Code Status/Comfort Care Code Status Assessed: Yes (Full) Critical Care: No Time Spent Managing Pts Care (In Minutes): 55
[2021-12-06] MEDS: MORPHINE 4 MG/ML SYR IV PRN ×2 (07:05→12:30)
[2021-12-06] MEDS: HYDROCODONE/APAP 5/325 MG TAB PO PRN (17:32)
[2021-12-07] MEDS: MORPHINE 4 MG/ML SYR IV PRN (04:56)
[2021-12-07] MEDS: HYDROCODONE/APAP 5/325 MG TAB PO PRN ×3 (14:18→21:50)
--- NOTE | 2021-12-07 14:25 | RAD REPORT ---
EXAM DESCRIPTION: RAD - Chest Single View - 12/07/2021 2:10 pm CLINICAL HISTORY: PTX Chest pain. COMPARISON: Chest Single View dated 12/04/2021; Chest Single View dated 12/04/2021; Chest Single View da yordan 12/04/2021; Chest Single View dated 12/04/2021 FINDINGS: Portable technique limits examination quality. Right-sided chest tube remains in place. Small right apical pneumothorax is unchanged since 2. The heart is normal in size. The left lung is clear. IMPRESSION: Small right apical pneumothorax without significant change since 12/04/2021.
[2021-12-07 21:53] VITALS: O2SAT 97
[2021-12-07 22:00] VITALS: BP 124/62; TEMP 97.7
== END 2021-12-07 22:30 | disposition short-term general hospital (02) | DRG 201 ==
LOC: ER 02:21 → ERHOLD 05:12 → 2ND 05:47
PROVIDERS: ADMIT Hospitalist; ATTEND Hospitalist
PROC: 0W9930Z Drainage of Right Pleural Cavity with Drainage Device, Percutaneous Approach (ICD-10-PCS; principal; 2021-12-02)
PROC: 0W9930Z Drainage of Right Pleural Cavity with Drainage Device, Percutaneous Approach (ICD-10-PCS; 2021-12-03)
DX: J93.11 Primary spontaneous pneumothorax (principal); J45.909 Unspecified asthma, uncomplicated; Z87.891 Personal history of nicotine dependence; Z20.822 Contact with and (suspected) exposure to COVID-19
CPT/HCPCS: 0240U; 36415; 71045; 71250; 80048; 80053; 80076; 80307; 81003; 83735; 83880; 84484; 85025; 85610; 93005; 96374; 96375; 99285; J1650; J2270; J2405; J3010